=== PATIENT | female | born 1990 ===

== ENCOUNTER → 2018-10-18 16:01 | Outpatient (CLI) | payer OTHER, SELFPAY ==
--- NOTE | 2018-10-18 | DI.RAD.S_ITS ---
PROCEDURE: XR TOE LT MIN 2V INDICATIONS: LEFT GREAT TOE PAIN TECHNIQUE: 3 views of the left great toe(s) acquired. COMPARISON: None. FINDINGS: Bones: No fractures or dislocations. No suspicious bony lesions. No bony erosive changes are seen. Soft tissues: No suspicious soft tissue densities. IMPRESSION: No acute left great toe fracture or dislocation. No gross bone erosive changes. Dictated by: Enzo Humphrey M.D. on 10/18/2018 at 16:30 Approved by: Enzo Humphrey M.D. on 10/18/2018 at 16:31
== END ==
PROVIDERS: PCP Family Medicine; Visit Provider Family Medicine
DX: M79.675 Pain in left toe(s) (principal)
CPT/HCPCS: 73660

== ENCOUNTER → 2019-06-25 16:19 | Outpatient (CLI) | payer OTHER, SELFPAY ==
--- NOTE | 2019-06-25 | DI.RAD.S_ITS ---
PROCEDURE: XR CHEST 2V INDICATIONS: SHORTNESS OF BREATH TECHNIQUE: 2 views of the chest were acquired. COMPARISON: [facility], , CHEST 2 VIEW, 04/25/2010, 15:18. FINDINGS: Surgical changes and devices: None. Lungs and pleura: Lungs are clear. No pleural effusions or pneumothorax. Mediastinum: Mediastinal contours are normal. Heart size is normal. Bones and chest wall: No suspicious bony abnormalities. Soft tissues appear unremarkable. IMPRESSION: No evidence acute pulmonary process. Dictated by: Loc Barillas M.D. on 06/25/2019 at 16:49 Approved by: Loc Barillas M.D. on 06/25/2019 at 16:50
== END ==
PROVIDERS: PCP Family Medicine; Visit Provider Family Medicine
DX: R06.03 Acute respiratory distress (principal)
CPT/HCPCS: 71046

== ENCOUNTER → 2019-07-15 13:34 | Outpatient (CLI) | payer OTHER, SELFPAY ==
[2019-07-15 13:54] LABS: Add Manual Diff / Slide Review NO; Basophils Absolute Auto 0 /uL (0-100); Basophils Percent Auto 0.3 % (0-2); Eosinophils Absolute Auto 100 /uL (0-450); Hematocrit 41.3 % (36-46); Hemoglobin 14.4 g/dL (12.0-16.0); Lymphocytes Absolute Auto 2400 /uL (1100-4500); Lymphocytes Percent Auto 32.7 % (25-40); Mean Corpuscular HGB Conc 34.9 % (30-36); Mean Corpuscular Hemoglobin 29.8 PG (26-34); Mean Corpuscular Volume 85.4 fL (80-100); Monocytes Absolute Auto 500 /uL (0-900); Monocytes Percent Auto 7.5 % (3-14); Neutrophils Absolute Auto 4200 /uL (1500-7000); Neutrophils Percent Auto 58.5 % (50-75); Platelet Count 213 X10^3/uL (150-400); Red Blood Cell Count 4.84 X10^6/uL (4.0-5.2); Red Cell Distribution Width 12.4 % (11.6-14.8); White Blood Cell Count 7.2 X10^3/uL (4.5-11.0)
[2019-07-15 15:04] LABS: HEMOLYSIS < 15 (0-50); Potassium 4.1 mmol/L (3.4-5.1)
[2019-07-15 15:09] LABS: Alanine Aminotransferase 58 IU/L (9-52); Albumin 4.4 g/dL (3.5-5.0); Albumin Globulin Ratio 1.3 (1.0-2.8); Alkaline Phosphatase 90 U/L (38-126); Aspartate Aminotransferase 47 IU/L (14-36); BUN Creatinine Ratio 21.3 (6-22); Bilirubin Total 0.5 mg/dL (0.2-1.3); Blood Urea Nitrogen 17 mg/dL (7-17); C-Reactive Protein Quant 0.9 mg/dL (<1.0); Calcium 10.1 mg/dL (8.4-10.2); Carbon Dioxide 28 mmol/L (22-32); Chloride 103 mmol/L (98-107); Estimated Glomerular Filt Rate > 60.0 mL/min (>60); Globulin 3.3 g/dL (1.7-4.1); Glucose 103 mg/dL (70-100); Sodium 141 mmol/L (137-145); Total Protein 7.7 g/dL (6.3-8.2)
[2019-07-15 15:38] LABS: TSH w/ Reflex to FT4 1.89 uIU/mL (0.47-4.68)
== END ==
PROVIDERS: Visit Provider Family Medicine
DX: M94.0 Chondrocostal junction syndrome [Tietze] (principal); R07.89 Other chest pain; N64.4 Mastodynia; F41.8 Other specified anxiety disorders
CPT/HCPCS: 36415; 80053; 84443; 85025; 86140

== ENCOUNTER 2021-02-01 12:40 | Emergency (ER) | payer OTHER, SELFPAY ==
[2021-02-01 13:00] VITALS: BP 168/96; PULSE 91; RESP 15; TEMP 36.8; O2SAT 100; BMI 43.2
--- NOTE | 2021-02-01 13:05 | DI.RAD.S_ITS ---
PROCEDURE: XR CHEST 1V INDICATIONS: chest pain TECHNIQUE: One view of the chest was acquired. COMPARISON: [facility], , XR CHEST 2V, 06/25/2019, 16:24. [facility], , CHEST 2 VIEW, 04/25/2010, 15:18. FINDINGS: Surgical changes and devices: None. Lungs and pleura: Lungs are clear. No pleural effusions or pneumothorax. Mediastinum: Mediastinal contours appear normal. Heart size is normal. Bones and chest wall: No suspicious bony lesions. Overlying soft tissues appear unremarkable. IMPRESSION: Normal for age, source of current chest pain symptoms is not seen. Dictated by: Ernesto Grimes M.D. on 02/01/2021 at 13:43 Approved by: Ernesto Grimes M.D. on 02/01/2021 at 13:44
[2021-02-01 13:26] LABS: Add Manual Diff / Slide Review NO; Basophils Absolute Auto 100 /uL (0-100); Eosinophils Absolute Auto 100 /uL (0-450); Eosinophils Percent Auto 1.3 % (2-4); Hematocrit 39.3 % (36-46); Hemoglobin 13.6 g/dL (12.0-16.0); Lymphocytes Absolute Auto 1900 /uL (1100-4500); Lymphocytes Percent Auto 28.5 % (25-40); Mean Corpuscular HGB Conc 34.6 % (30-36); Mean Corpuscular Hemoglobin 30.1 PG (26-34); Mean Corpuscular Volume 86.9 fL (80-100); Monocytes Absolute Auto 500 /uL (0-900); Neutrophils Absolute Auto 4100 /uL (1500-7000); Neutrophils Percent Auto 62.2 % (50-75); Platelet Count 225 X10^3/uL (150-400); Red Blood Cell Count 4.52 X10^6/uL (4.0-5.2); Red Cell Distribution Width 12.7 % (11.6-14.8); White Blood Cell Count 6.7 X10^3/uL (4.5-11.0)
[2021-02-01 13:35] LABS: Prothrombin Time 11.3 SECONDS (10.1-12.7)
[2021-02-01 13:37] LABS: PTT Partial Thromboplastin Tim 36 SECONDS (26.4-36.2)
[2021-02-01 13:38] LABS: Alanine Aminotransferase 46 IU/L (<35); Albumin 4.2 g/dL (3.5-5.0); Albumin Globulin Ratio 1.5 (1.0-2.8); Alkaline Phosphatase 74 U/L (38-126); Aspartate Aminotransferase 37 IU/L (14-36); BUN Creatinine Ratio 18.4 (6-22); Bilirubin Total 0.4 mg/dL (0.2-1.3); Blood Urea Nitrogen 14 mg/dL (7-17); Carbon Dioxide 27 mmol/L (22-32); Chloride 103 mmol/L (98-107); Creatine Kinase 94 U/L (30-135); Estimated Glomerular Filt Rate > 60.0 mL/min (>60); Globulin 2.8 g/dL (1.7-4.1); Glucose 126 mg/dL (70-100); HEMOLYSIS < 15 (0-50); Lipase 61 U/L (23-300); Potassium 3.5 mmol/L (3.4-5.1); Sodium 137 mmol/L (137-145)
[2021-02-01 13:49] LABS: Troponin I < 0.012 ng/mL (0.01-0.034)
--- NOTE | 2021-02-01 14:53 | PC.NURSE ---
Pt states that with this CP she called her mom when it started and her mom had her take a few deep breaths and the pain went away. Pt had one other minor episode of this L chest pain in the lobby but non since. Pt states she has no complaints at this time. Pt appears well
[2021-02-01 15:13] VITALS: PULSE 78; RESP 16; O2SAT 99
--- NOTE | 2021-02-01 15:13 | ED.CHESTPAIN ---
HPI - Chest Pain General Chief Complaint: Chest Pain Stated Complaint: chest pain Time Seen by Provider: 02/01/21 15:13 Source: patient Mode of arrival: Ambulatory Limitations: no limitations History of Present Illness HPI narrative: 30-year-old woman who presents after having a 2-3 minute episode of severe sharp stabbing left-sided chest pain this morning that occurred while she was simply getting ready for her day. She describes no significant medical problems currently is on no medications. She does note that she has hyperhidrosis and frequently is quite sweaty. Her reports that she often complains of chest pain particularly if it is cold or if they are outside or if she is walking fast. She does describe a chronic cough that is worse in all of those situations as well. She has never been diagnosed with asthma but does note that as her weight has increased she has had more and more difficulties with her breathing as well. She describes no dizziness, headaches, fevers, chills, orthopnea, abdominal pain, constipation, diarrhea, lower extremity edema. Related Data Allergies Allergy/AdvReac Type Severity Reaction Status Date / Time cephalexin [CEPHALEXIN] Allergy Unknown Verified 02/01/21 13:03 amoxicillin Allergy Verified 02/01/21 13:03 COLD MEDICATION Allergy Unknown Uncoded 02/06/18 12:36 Review of Systems Review of Systems ROS Unobtainable: All systems reviewed & are unremarkable except as noted in HPI and below Patient History Medical History Mild reactive airways disease Morbid obesity with BMI of 40.0-44.9, adult Social History Smoking Status: Unknown if ever smoked Smoking Status: Unknown if ever smoked alcohol intake frequency: holidays/special occasions only Substance Use Type: does not use Exam Narrative Exam Narrative: General: Healthy appearing, in no acute distress. Able to give a complete and coherent history. Well-nourished well-developed HEENT: Moist mucous membranes, normal sclera with reactive pupils, Neck: supple Respiratory: Lungs are clear to auscultation, no wheezing no rales no rhonchi. Full and symmetrical air movement Chest: No costochondral tenderness Cardiac: Regular rate and rhythm no murmurs no bruits Abdomen: Soft, nontender, good bowel tones, no flank pain Skin: Warm and dry, no rashes Neurologic: Grossly neurologically intact with no obvious asymmetries or abnormalities Extremities: No trauma, well perfused Psych: Cooperative, appropriate insight and affect Initial Vital Signs Initial Vital Signs: Vital Signs Temperature 98.2 F 02/01/21 13:00 Pulse Rate 91 H 02/01/21 13:00 Respiratory Rate 15 02/01/21 13:00 Blood Pressure 168/96 H 02/01/21 13:00 Pulse Oximetry 100 02/01/21 13:00 Course Orders Ordered: ED Orders 02/01/21 13:05 XR chest 1V Stat EKG-12 Lead Stat 02/01/21 13:16 Complete Blood Count AUTO DIFF Stat Comprehensive Metabolic Panel Stat Lipase Stat Partial Thromboplastin Time Stat Prothrombin Time INR Stat Troponin & CK Cardiac Panel Stat Discontinued Medications Albuterol (Albuterol Hfa Prepack) 1 box MISC SEEINSTR ONE Stop: 02/01/21 15:34 Vital Signs Vital signs: Vital Signs - 8 hr 02/01/21 13:00 Temperature 98.2 F Pulse Rate 91 H Respiratory Rate 15 Blood Pressure 168/96 H Pulse Oximetry 100 MDM - Chest Pain Medical Records Data Attestation: I reviewed the patient's medical records. Lab Data Attestation: I reviewed the patient's lab results. Result diagrams: 02/01/21 13:16 02/01/21 13:16 Labs: Lab Results 02/01/21 02/01/21 02/01/21 Range/Units 13:16 13:16 13:16 WBC 6.7 (4.5-11.0) X10^3/uL RBC 4.52 (4.0-5.2) X10^6/uL Hgb 13.6 (12.0-16.0) g/dL Hct 39.3 (36-46) % MCV 86.9 (80-100) fL MCH 30.1 (26-34) PG MCHC 34.6 (30-36) % RDW 12.7 (11.6-14.8) % Plt Count 225 (150-400) X10^3/uL Neut % (Auto) 62.2 (50-75) % Lymph % (Auto) 28.5 (25-40) % [place] % (Auto) 7.0 (3-14) % Eos % (Auto) 1.3 L (2-4) % Baso % (Auto) 1.0 (0-2) % Neut # (Auto) 4100 (3477-3625) /uL Lymph # (Auto) 1900 (0773-7598) /uL [place] # (Auto) 500 (0-900) /uL Eos # (Auto) 100 (0-450) /uL Baso # (Auto) 100 (0-100) /uL PT 11.3 (10.1-12.7) SECONDS INR 1.0 (0.9-1.3) APTT 36 (26.4-36.2) SECONDS Sodium 137 (137-145) mmol/L Potassium 3.5 (3.4-5.1) mmol/L Chloride 103 (98-107) mmol/L Carbon Dioxide 27 (22-32) mmol/L BUN 14 (7-17) mg/dL Creatinine 0.76 (0.52-1.04) mg/dL Estimated GFR > 60.0 (>60) mL/min BUN/Creatinine Ratio 18.4 (6-22) Glucose 126 H (70-100) mg/dL Calcium 9.0 (8.4-10.2) mg/dL Total Bilirubin 0.4 (0.2-1.3) mg/dL AST 37 H (14-36) IU/L ALT 46 H (<35) IU/L Alkaline Phosphatase 74 (38-126) U/L Total Creatine Kinase 94 (30-135) U/L CK-MB (CK-2) TNP CK-MB (CK-2) Rel Index TNP Troponin I < 0.012 (0.01-0.034) ng/mL Total Protein 7.0 (6.3-8.2) g/dL Albumin 4.2 (3.5-5.0) g/dL Globulin 2.8 (1.7-4.1) g/dL Albumin/Globulin Ratio 1.5 (1.0-2.8) Lipase 61 (23-300) U/L Imaging Data Chest x-ray: Radiologist's Impression: FINDINGS: Surgical changes and devices: None. Lungs and pleura: Lungs are clear. No pleural effusions or pneumothorax. Mediastinum: Mediastinal contours appear normal. Heart size is normal. Bones and chest wall: No suspicious bony lesions. Overlying soft tissues appear unremarkable. IMPRESSION: Normal for age, source of current chest pain symptoms is not seen. Dictated by: Ernesto Grimes M.D. on 02/01/2021 at 13:43 MDM Narrative Medical decision making narrative: 30-year-old woman presents with 2-3 minute episode of severe sharp stabbing left-sided chest pain with normal workup. No evidence of infection, pneumothorax, pulmonary embolism, acute coronary syndrome. She does have on number of other health indication markers that need to be addressed including and elevating fasting blood sugar 126, slightly elevated AST ALT, hypertension. She also notes signs and symptoms consistent with cough variant asthma getting worse as her weight has increased. She is given a albuterol MDI inhaler with spacer as well as instructions in the emergency department. Reassurance regarding the chest pain with no obvious life-threatening diagnoses found. We also had a long talk about reducing sugars and adding slightly more exercise, even if it is simply walk around the block after dinner every day with the kids. A encouraged her to use 2 puffs of her inhaler prior to activity to see if it helped her breathe a bit more easily and reduced barriers for her to add activity to her life. Will have her follow-up with her primary care physician Discharge Plan Departure Patient Disposition: Home Clinical Impression: Atypical chest pain, Asthma, cough variant, Elevated fasting blood sugar, Elevated liver transaminase level Instructions: DI for Asthma -- Adult, DI for Atypical Chest Pain Activity Restrictions/Additional Instructions: Thank you for coming in today You do not have a life-threatening explanation for the brief episode of severe chest pain you experienced this morning. You do have a number of health indicators that are concerning and can be significantly changed by pain closer attention to healthy your diet lifestyle choices. I suspect that the cough that you experience in the cold air or with activity is a variant of asthma. I have given you an albuterol inhaler with spacer and would suggest the use 2 puffs if you are feeling short of breath and prior to activity. Good luck in your request to stop drinking any sugary drinks and in adding a brief bit of walking every day to your usual routine. I wish you the best
[2021-02-01 15:30] VITALS: PULSE 79; RESP 21; O2SAT 100
[2021-02-01 15:31] VITALS: BP 127/68; PULSE 82; O2SAT 100
[2021-02-01 15:49] VITALS: PULSE 81; RESP 16; O2SAT 98
[2021-02-01] MEDS: ALBUTEROL HFA PREPACK 1 BOX MISC (15:49)
== END 2021-02-01 16:02 | disposition home or self-care (01) ==
PROVIDERS: Emergency Medicine; Emergency Provider Emergency Medicine
DX: J45.909 Unspecified asthma, uncomplicated (principal); R07.89 Other chest pain; R73.01 Impaired fasting glucose; R74.01 Elevation of levels of liver transaminase levels
CPT/HCPCS: 36415; 71045; 80053; 82550; 83690; 84484; 85025; 85610; 85730; 93005; 94640; 99283; 99284

== ENCOUNTER → 2021-02-15 15:52 | Outpatient (CLI) | payer OTHER, SELFPAY ==
--- NOTE | 2021-02-15 | DI.RAD.S_ITS ---
PROCEDURE: XR ANKLE RT MIN 3V INDICATIONS: RIGHT FOOT PAIN/FALL TECHNIQUE: 3 views of the ankle were acquired. COMPARISON: None. FINDINGS: Bones: No fractures or dislocations. Ankle mortise is normally aligned. No suspicious bony lesions. Soft tissues: No tibiotalar joint effusion. Achilles tendon appears normal. Soft tissue swelling over the ankle region. No fracture or traumatic subluxation is found, however. IMPRESSION: Soft tissue swelling without fracture. Dictated by: Ernesto Grimes M.D. on 02/15/2021 at 16:25 Approved by: Ernesto Grimes M.D. on 02/15/2021 at 16:50
--- NOTE | 2021-02-15 | DI.RAD.S_ITS ---
PROCEDURE: XR FOOT RT MIN 3V INDICATIONS: RIGHT FOOT PAIN/FALL TECHNIQUE: 3 views of the foot were acquired. COMPARISON: None. FINDINGS: Bones: No fractures or dislocations. No suspicious bony lesions. Soft tissues: No tibiotalar joint effusion. Achilles tendon appears normal. IMPRESSION: Normal for age, source of current pain after trauma symptoms is not seen. Dictated by: Ernesto Grimes M.D. on 02/15/2021 at 16:59 Approved by: Ernesto Grimes M.D. on 02/15/2021 at 16:59
== END ==
PROVIDERS: PCP Family Medicine; Referring Provider Family Medicine; Visit Provider Family Medicine
DX: M79.671 Pain in right foot (principal); M79.89 Other specified soft tissue disorders
CPT/HCPCS: 73610; 73630

== ENCOUNTER → 2021-03-03 15:54 | Outpatient (CLI) | payer OTHER, SELFPAY ==
--- NOTE | 2021-03-03 | DI.RAD.S_ITS ---
PROCEDURE: XR ANKLE RT MIN 3V INDICATIONS: RIGHT ANKLE PAIN S/P INJURY TECHNIQUE: 3 views of the ankle were acquired. COMPARISON: [facility], CR, XR ANKLE RT MIN 3V, 02/15/2021, 15:54. FINDINGS: Bones: No fractures or dislocations. Ankle mortise is normally aligned. No suspicious bony lesions. Soft tissues: No tibiotalar joint effusion. Achilles tendon appears normal. Lateral soft tissue swelling is noted and ligamentous injury cannot be excluded. IMPRESSION: No fracture. No osseous lesion. If symptoms and/or clinical suspicion for pathology persists, further assessment with advanced imaging (e.g. CT, MRI or bone scan) should be considered. Dictated by: Daija Bragg MD, PhD on 03/03/2021 at 18:31 Approved by: Daija Bragg MD, PhD on 03/03/2021 at 18:32
== END ==
PROVIDERS: PCP Family Medicine; Referring Provider Family Medicine; Visit Provider Family Medicine
DX: M25.571 Pain in right ankle and joints of right foot (principal); S99.911A Unspecified injury of right ankle, initial encounter; X58.XXXA Exposure to other specified factors, initial encounter
CPT/HCPCS: 73610

== ENCOUNTER → 2022-10-13 10:49 | Outpatient (CLI) | payer OTHER, SELFPAY ==
--- NOTE | 2022-10-13 | DI.RAD.S_ITS ---
PROCEDURE: XR KNEE LT 3V INDICATIONS: Pain in unspecified knee TECHNIQUE: 3 views of the knee were acquired. COMPARISON: None. FINDINGS: Bones: No acute fractures or dislocations. No suspicious bony lesions. No significant arthritic changes. Soft tissues: No joint effusion. No suspicious soft tissue calcifications. IMPRESSION: No acute osseous abnormality. If the symptoms persist, consider cross sectional imaging such as MRI or CT for further assessment. Approved by: Cecilio Laura M.D. on 10/13/2022 at 13:45
== END ==
PROVIDERS: PCP Family Medicine; Referring Provider Family Medicine; Visit Provider Family Medicine
DX: M25.562 Pain in left knee (principal)
CPT/HCPCS: 73562

== ENCOUNTER → 2023-04-11 10:16 | Outpatient (ROUT) | payer OTHER, SELFPAY ==
[2023-04-11 11:08] LABS: COVID-19 CEPHEID 4-PLEX PCR Negative (Negative); Influenza A - CEPHEID Flu A NEGATIVE (NEGATIVE); Influenza B - CEPHEID Flu B NEGATIVE (NEGATIVE); Respiratory Syncytial Virus Negative (Negative)
== END ==
PROVIDERS: PCP Family Medicine; Visit Provider Internal Medicine
DX: R05.9 Cough, unspecified (principal)
CPT/HCPCS: 0241U